=== PATIENT | male | born 2000 | race Caucasian/White ===

== ENCOUNTER → 2023-11-30 09:32 | Outpatient (REF) | payer BC, SELFPAY | LOC: RAD 09:32 | PROVIDERS: ATTENDING PHYSICIAN Nurse Practitioner Adult Health | DX: M25.511 Pain in right shoulder (principal) | CPT/HCPCS: 73030 ==

== ENCOUNTER 2025-04-07 09:20 | Emergency (ER) | payer BC, SELFPAY ==
[2025-04-07 09:37] VITALS: BP 140/92
--- NOTE | 2025-04-07 10:00 | ED.GENMED ---
History of Present Illness
General
Chief Complaint: Abdominal Pain
Source: patient
Exam Limitations: none
Time Seen by Provider: 04/07/25 09:50
History of Present Illness
History of Present Illness:
See MDM
Past History
Past History
ED Past Medical History: Asthma and Other (Lyme)
ED Past Surgical History: None
Social History
Tobacco: Non-smoker
Employment: Student
Phy Exam
Physical Exam
Physical Exam:
See MDM
Course
Orders/Labs/Results
Orders:
Orders
04/07/25 09:58
CT Abd/pel W Iv And Oral Contr Urgent
Comment:
Reason For Exam: lower abd pain
0.9% Sodium Chloride 1000 ml [Nss] 1,000 ml IV BOLUS
Iohexol [Omnipaque] See Protocol PO NOW STA
Ketorolac [Toradol] 30 mg IV NOW STA
Ondansetron Injectable [Zofran] 4 mg IV NOW STA
04/07/25 10:04
Complete Blood Count/With Diff Urgent
Comprehensive Metabolic Panel Urgent
Lipase Urgent
Abnormal Lab Results
04/07/25
10:04
WBC 11.6 H 10^3/uL
(4.8-10.8)
Absolute Neuts (auto) 9.4 H 10^3/uL
(1.4-6.5)
Absolute Monos (auto) 0.7 H 10^3/uL
(0.1-0.6)
Neutrophils % 81.2 H %
(42.2-75.2)
Lymphocytes % 11.5 L %
(20.5-51.1)
04/07/25 10:04
04/07/25 10:04
Vital Signs
Initial and Last Documented VS:
Initial Vital Signs
Temp Pulse Resp BP Pulse Ox
97.9 F 65 16 140/92 100
04/07/25 09:37 04/07/25 09:37 04/07/25 09:37 04/07/25 09:37 04/07/25 09:37
Last Documented Vital Signs
Temp Pulse Resp BP Pulse Ox
97.9 F 77 16 138/89 99
04/07/25 09:37 04/07/25 12:19 04/07/25 12:19 04/07/25 12:19 04/07/25 12:19
MDM/Problems Addressed
Differential Diagnosis Includes:
HPI and MDM Narrative:
24-year-old male presenting with lower abdominal pain. Has been dealing with intermittent abdominal pain for the past 4 days or so. He initially thought this was related to constipation but he had a bowel movement earlier today.
On exam, patient does have point tenderness to the suprapubic and right lower quadrant area. There is no localized rebound. However, given the complaint and area of pain, will obtain CT to rule out acute appendicitis
Physical exam
General: Well appearing and non-toxic
HEENT: protecting airway
Neck: appears supple
CV: No evidence of cyanosis
Resp: No accessory muscle use
Abd: Non-distended. Point tenderness to suprapubic and right lower quadrant
Extremities: No deformities
Neuro: alert
Psych: Normal affect
Skin: Intact
Problems Addressed including Acute and Chronic Conditions affecting care:
1. Abdominal pain
Acuity: acute
Prognosis: stable
Details: Given complaint and localization of symptoms, will obtain CT rule out acute appendicitis
Updates
CT negative for acute pathology. Patient angie well-appearing and Toradol has substantially decreased symptoms. Discussed return precautions
Differential Diagnosis (but not limited to): Acute appendicitis, mesenteric adenitis, constipation
Testing considered: Abdominal x-ray
Drug therapy (if applicable): OTC meds, please see d/c instruction regarding Rx drugs
Amount and/or Complexity of Data Reviewed
Clinical info obtained from: Patient
External data reviewed: N/A
Labs I independently reviewed (but not limited to): Mild leukocytosis
Radiology: The CT scan was personally and independently reviewed. In addition, official CT report reviewed.
Pulse Ox: not hypoxic
EKG independently reviewed: N/A
Gravity Prospecting Operator Helper: N/A
Critical Care: N/A
Risk of Complication:
Social Determinants of health: Good social support
Discussed with other providers: N/A
Escalation of Care includes Admit/Obs: After being observed in the Emergency Department, pt stable for discharge.
Occasional wrong word or 'sound a like' substitutions may have occurred due to the inherent limitations of voice recognition software. Read the chart carefully and recognize, using context, where substitutions have occurred.
*Pulse Oximetry
SaO2: 100
Oxygen Mode of Delivery: Room air
Patient hypoxic: no
*Critical Care Note
Total Time (30-74mins, 75-104mins- exclusive of procedures): Not Applicable
ED Attending Note
-
Portions of this chart may have been created with voice recognition software.� Occasional wrong word or��sound alike� substitutions may have occurred due to the inherent limitations of voice recognition software.
Discharge Plan
Departure
Patient Disposition: Home (Routine Discharge)
Date of Disposition: 04/07/25
Time of Disposition: 13:39
Patient with high blood pressure during this ER visit?: No
Discharge Problem:
Abdominal pain
Instructions: Abdominal Pain
Prescriptions:
No Action
No Current Medications
0
Referrals:
Vicenta Nettles MD [Family Provider, Family Practice]
Activity Restrictions/Additional Instructions:
Please return for any worsening symptoms.
You may return at any time if you have further concerns.
Please follow up with your doctor at the first available appointment, preferably this week.
Thank you for choosing [facility].
Interventions
Interventions:
*Risk Screen - Suicide Last Done: 04/07/25 09:37
*General Assessment Last Done: 04/07/25 10:30
*Neglect/Abuse Screening Last Done: 04/07/25 09:37
*ED- Fall Risk Assessment Last Done: 04/07/25 10:30
*ED COVID-19 Vaccine History Last Done: 04/07/25 10:30
VF-Yzrukn-Dofwilqvkx Assessment Last Done: 04/07/25 10:21
Discharge Date and Time
Print Language: AZERI
[2025-04-07] MEDS: NSS 1000 IV (10:09)
[2025-04-07] MEDS: ZOFRAN 4 MG IV (10:10)
[2025-04-07] MEDS: TORADOL 30 MG IV (10:10)
[2025-04-07] MEDS: OMNIPAQUE 50 ML PO (10:10)
[2025-04-07 10:12] LABS: Hematocrit 44.0 % (39.0-52.0); Hemoglobin 15.8 g/dL (13.0-18.0); Mean Corp Hgb Conc. 35.9 g/dL (33.0-37.0); Mean Corpuscular Volume 85.1 fL (80.0-94.0); Nucleated Red Blood Cells % 0 % (-); Platelet Count 199 10^3/uL (130-400); Red Cell Dist. Width 12.1 % (11.5-14.5)
[2025-04-07 10:30] VITALS: BMI 23.1
[2025-04-07 10:47] LABS: ALT (SGPT) 25 U/L (0-50); AST (SGOT) 26 U/L (17-59); Albumin 4.7 g/dl (3.5-5.0); Alkaline Phosphatase 64 U/L (38-126); Blood Urea Nitrogen 17 mg/dl (9-20); Calcium 10.2 mg/dl (8.4-10.2); Carbon Dioxide 24 mmol/L (22-30); Chloride 105 mmol/L (98-107); Estimated Creatinine Clearance > 125 ml/min; Glucose 96 mg/dl (70-99); Lipase 65 U/L (23-300); Potassium 4.0 mmol/L (3.5-5.1); Sodium 135 mmol/L (135-145); Total Protein 7.1 g/dl (6.3-8.2); eGFR > 60.00
[2025-04-07 12:19] VITALS: BP 138/89
[2025-04-07 13:43] VITALS: BP 131/94
== END 2025-04-07 13:44 | disposition home or self-care (01) ==
LOC: EMR 09:20
PROVIDERS: EMERGENCY PHYSICIAN Student in an Organized Health Care Education/Training Program; FAMILY PHYSICIAN Family Medicine
DX: R10.30 Lower abdominal pain, unspecified (principal); J45.909 Unspecified asthma, uncomplicated
CPT/HCPCS: 96374; 96375; 96361; 99284; 74177; 80053; 83690; 85025; Q9967

== ENCOUNTER 2025-09-13 05:38 | Emergency (ER) | payer SELFPAY ==
[2025-09-13 05:50] VITALS: BP 137/91
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
[2025-09-13] MEDS: TYLENOL 1000 MG PO (10:22)
[2025-09-13] MEDS: ADACEL 0.5 ML IM (10:24)
== END 2025-09-13 10:30 | disposition home or self-care (01) ==
LOC: EMR 05:38
PROVIDERS: EMERGENCY PHYSICIAN Student in an Organized Health Care Education/Training Program; FAMILY PHYSICIAN Family Medicine
DX: S00.83XA Contusion of other part of head, initial encounter (principal); S00.01XA Abrasion of scalp, initial encounter; S80.212A Abrasion, left knee, initial encounter; S60.311A Abrasion of right thumb, initial encounter; V47.0XXA Car driver injured in collision with fixed or stationary object in nontraffic accident, initial encounter; Y92.410 Unspecified street and highway as the place of occurrence of the external cause; J45.909 Unspecified asthma, uncomplicated; Z23 Encounter for immunization
CPT/HCPCS: 99284; 90471; 70450; 70486; 90715